=== PATIENT | male | born 1935 | race Caucasian/White ===

== ENCOUNTER 2018-06-02 11:21 | Day surgery (SDC) | payer BC, MEDICARE ==
[~2018-06-02] VITALS: Ht 162.6 cm; Wt 68.2 kg
[2018-06-02 12:04] VITALS: BP 136/82
[2018-06-02] MEDS ORDERED: ALEN70TA3 PO (12:13)
[2018-06-02] MEDS ORDERED: AMLO-150 PO (12:13)
[2018-06-02] MEDS ORDERED: BENA20TA54 PO (12:13)
[2018-06-02] MEDS ORDERED: ALEN70TA6 PO (12:13)
[2018-06-02] MEDS ORDERED: FERR325T5 PO (12:13)
[2018-06-02] MEDS ORDERED: PANT40TA5 PO (12:13)
[2018-06-02] MEDS ORDERED: ATOR40TA PO (12:13)
[2018-06-02] MEDS ORDERED: LEVO125T5 PO (12:13)
[2018-06-02] MEDS ORDERED: METH2.5T PO (12:13)
[2018-06-02] MEDS ORDERED: FINA5TAB4 PO (12:13)
[2018-06-02] MEDS ORDERED: APIX2.5T PO (12:13)
[2018-06-02] MEDS ORDERED: PROPOFOL 10 MG/ML, 20ML ONE (12:16)
== END 2018-06-02 13:18 | disposition home or self-care (01) ==
LOC: CACL 11:21
PROVIDERS: ATTEND Internal Medicine Cardiovascular Disease
DX: I48.92 Unspecified atrial flutter (principal); I10 Essential (primary) hypertension; E78.5 Hyperlipidemia, unspecified; E03.9 Hypothyroidism, unspecified; M19.90 Unspecified osteoarthritis, unspecified site; Z79.899 Other long term (current) drug therapy; Z96.653 Presence of artificial knee joint, bilateral; Z98.890 Other specified postprocedural states
CPT/HCPCS: 92960; J2704

== ENCOUNTER 2018-12-10 10:13 | Outpatient (CLI) | payer MEDICARE ==
[~2018-12-10 10:13] MED LIST: ALEN70TA3 PO; ALEN70TA6 PO; AMLO-150 PO; APIX2.5T PO; ATOR40TA PO; BENA20TA54 PO; FERR325T5 PO; FINA5TAB4 PO; LEVO125T5 PO; METH2.5T PO; PANT40TA5 PO
== END 2018-12-10 23:59 | disposition home or self-care (01) ==
LOC: CARD 10:13
PROVIDERS: ATTEND Family Medicine
DX: R20.2 Paresthesia of skin (principal); R68.89 Other general symptoms and signs; G62.9 Polyneuropathy, unspecified
CPT/HCPCS: 95909

== ENCOUNTER 2019-01-03 12:53 | Outpatient (CLI) | payer MEDICARE | END 2019-01-03 23:59 | disposition home or self-care (01) | LOC: CFH 12:53 | PROVIDERS: ATTEND Internal Medicine Cardiovascular Disease | DX: I08.0 Rheumatic disorders of both mitral and aortic valves (principal); I48.92 Unspecified atrial flutter; I10 Essential (primary) hypertension; E78.5 Hyperlipidemia, unspecified; Z79.01 Long term (current) use of anticoagulants | CPT/HCPCS: 93306 ==

== ENCOUNTER → 2019-02-08 | Outpatient (CLI) | payer MEDICARE ==
[~2019-02-08] MED LIST changes: +REGADENOSON 0.4 MG/5 ML SYRINGE ONE
== END | disposition home or self-care (01) ==
LOC: CFH 12:07
PROVIDERS: ATTEND Internal Medicine Cardiovascular Disease
DX: R07.9 Chest pain, unspecified (principal); I48.91 Unspecified atrial fibrillation
CPT/HCPCS: 78452; 93017; A9502; J2785

== ENCOUNTER 2019-04-12 06:28 | Observation (INO) | payer MEDICARE ==
[2019-04-11 12:24] LABS: BASOPHILS # (AUTO) 0.02 x10^3/uL (0-0.1); BASOPHILS % (AUTO) 0 % (0-1); EOSINOPHILS # (AUTO) 0.14 x10^3/uL (0-0.4); EOSINOPHILS % (AUTO) 2 % (1-7); LYMPHOCYTES # (AUTO) 1.63 x10^3/uL (1-3.4); LYMPHOCYTES % (AUTO) 23 % (22-44); MD NO; MEAN CORPUSCULAR HEMOGLOBIN 34.1 pg (27.5-34.5); MEAN CORPUSCULAR VOLUME 103.1 fL (81-97); MEAN PLATELET VOLUME 7.7 fL (7.4-10.4); MONOCYTES # (AUTO) 0.57 x10^3/uL (0.2-0.8); MONOCYTES % (AUTO) 8 % (2-9); NEUTROPHILS # (AUTO) 4.73 x10^3/uL (1.8-6.8); NEUTROPHILS % (AUTO) 67 % (42-75); PLATELET COUNT 302 x10^3/uL (130-400); RED BLOOD COUNT 4.55 x10^6/uL (4.38-5.82); RED CELL DISTRIBUTION WIDTH 14.9 % (9.4-14.8)
[2019-04-11 12:36] LABS: ALBUMIN 3.4 g/dL (3.4-5.0); ANION GAP 8 mmol/L (5-15); CALCIUM 8.6 mg/dL (8.5-10.1); CHLORIDE 108 mmol/L (98-107)
[2019-04-11 12:40] LABS: ALANINE AMINOTRANSFERASE 38 U/L (12-78); ALKALINE PHOSPHATASE 80 U/L (45-117); BILIRUBIN,TOTAL 0.8 mg/dL (0.2-1.0); CREATININE 1.27 mg/dL (0.7-1.3)
[~2019-04-12] VITALS: Ht 162.6 cm; Wt 71.0 kg
[~2019-04-12 06:28] MED LIST changes: +CARV3.122 PO; +FOLI-17 PO; +LEVO88TA4 PO; +MULT-658 PO; -REGADENOSON 0.4 MG/5 ML SYRINGE ONE; +VIT1TABL34 PO
[2019-04-12] MEDS ORDERED: SODIUM CHLORIDE 0.9% 1,000 ML IV SCH (06:46)
[2019-04-12] MEDS ORDERED: MIDAZOLAM 1 MG/ML, 2ML ONE (07:14)
[2019-04-12] MEDS ORDERED: FENTANYL PF 100 MCG/2ML ONE ×2 (07:14→10:09)
[2019-04-12] MEDS ORDERED: LIDOCAINE 1%, 20ML ONE ×2 (07:14→12:09)
[2019-04-12] MEDS ORDERED: MIDAZOLAM 1 MG/ML, 5ML ONE (10:09)
[2019-04-12] MEDS ORDERED: HEPARIN 1,000 UNITS/ML, 10ML ONE (10:16)
[2019-04-12] MEDS ORDERED: ACETAMINOPHEN 325 MG TABLET PO PRN (13:00)
[2019-04-12] MEDS: APIXABAN 2.5 MG TABLET PO SCH ×2 (17:00→21:13)
[2019-04-12 20:08] VITALS: BP 145/92
[2019-04-12] MEDS ORDERED: ATORVASTATIN 10 MG TABLET PO SCH (21:00)
[2019-04-12] MEDS ORDERED: APIXABAN 2.5 MG TABLET PO SCH (21:00)
[2019-04-13 00:09] VITALS: BP 130/93
[2019-04-13] MEDS ORDERED: LEVOTHYROXINE 88 MCG TABLET PO SCH (06:00)
[2019-04-13] MEDS ORDERED: PANTOPROZOLE 40MG TABLET PO SCH (06:00)
[2019-04-13 08:45] VITALS: BP 134/81
[2019-04-13] MEDS ORDERED: [UNRECOGNIZED DRUG - OTHER] PO SCH (09:00)
[2019-04-13] MEDS ORDERED: CARVEDILOL 3.125 MG TABLET PO SCH (09:00)
[2019-04-13] MEDS ORDERED: ZINC PO SCH (09:00)
[2019-04-13] MEDS ORDERED: VIT C PO SCH (09:00)
[2019-04-13] MEDS ORDERED: FINASTERIDE 5 MG TABLET PO SCH (09:00)
[2019-04-13] MEDS ORDERED: VIT E PO SCH (09:00)
[2019-04-13] MEDS ORDERED: COPPER PO SCH (09:00)
[2019-04-13] MEDS ORDERED: BENAZEPRIL 20 MG TABLET PO SCH (09:00)
[2019-04-13] MEDS ORDERED: VIT A PO SCH (09:00)
[2019-04-13] MEDS ORDERED: FOLIC ACID 1 MG TABLET PO SCH (09:00)
[2019-04-13] MEDS ORDERED: MULTIVITAMIN 1 TABLET PO SCH (09:00)
[2019-04-13] MEDS: APIXABAN 2.5 MG TABLET PO SCH (09:12)
[2019-04-13] MEDS ORDERED: FLU VACC QS2019-20 36MOS UP/PF 0.5 ML IM-VACC ONE (11:00)
[2019-04-16] MEDS ORDERED: LEVOTHYROXINE 125 MCG TABLET PO SCH (06:00)
[2019-04-16] MEDS ORDERED: METHOTREXATE 2.5 MG TABLET PO SCH (09:00)
== END 2019-04-13 11:10 | disposition home or self-care (01) ==
LOC: CACL 06:28 → ORIP 12:32 → 5SO 15:45 → DCLOUNGE 04-13 10:57
PROVIDERS: ADMIT Internal Medicine Cardiovascular Disease; ATTEND Internal Medicine Cardiovascular Disease
DX: I48.92 Unspecified atrial flutter (principal); I42.9 Cardiomyopathy, unspecified; I11.0 Hypertensive heart disease with heart failure; I50.9 Heart failure, unspecified; E78.5 Hyperlipidemia, unspecified; E03.9 Hypothyroidism, unspecified; M19.90 Unspecified osteoarthritis, unspecified site; Z79.899 Other long term (current) drug therapy; Z23 Encounter for immunization
CPT/HCPCS: 36415; 71046; 80053; 85025; 85347; 90686; 93306; 93462; 93613; 93621; 93653; 93655; 93662; 99156; 99157; C1730; C1732; C1759; C1766; C1893; C1894; G0008; G0378; J1644; J2250; J3010; J3490

== ENCOUNTER → 2020-05-01 | Outpatient (CLI) | payer MEDICARE ==
[~2020-05-01] MED LIST changes: -ALEN70TA6 PO; +ALEN70TA77 PO; -FOLI-17 PO; +FOLI1TAB32 PO; -PANT40TA5 PO; +PANT40TA6 PO
== END | disposition home or self-care (01) ==
LOC: CFH 12:51
PROVIDERS: ATTEND Internal Medicine Cardiovascular Disease
DX: I08.3 Combined rheumatic disorders of mitral, aortic and tricuspid valves (principal); I42.9 Cardiomyopathy, unspecified
CPT/HCPCS: 93306